=== PATIENT | male | born 1950 | race African-American/Black ===

== ENCOUNTER 2019-07-21 16:03 | Emergency (ER) | payer OTHER ==
[~2019-07-21] VITALS: Ht 170.2 cm; Wt 79.1 kg
[2019-07-21 16:06] VITALS: Ht 170.2 cm; Wt 79.1 kg
[2019-07-21] MEDS ORDERED: LISINOPRIL2.5 MG (16:07)
[2019-07-21] MEDS ORDERED: MEDROL DOSE PACK4 MG PO (16:34)
[2019-07-21] MEDS ORDERED: NORVASC5 MG PO (17:13)
[2019-07-21 17:30] VITALS: BP 160/90
[2019-07-21] MEDS ORDERED: ZOCOR20 MG (22:50)
== END 2019-07-21 17:30 | disposition home or self-care (01) ==
LOC: D.ER 16:03
DX: T78.3XXA Angioneurotic edema, initial encounter (principal)

== ENCOUNTER 2019-07-21 19:09 | Inpatient (IN) | payer MEDICARE ==
[~2019-07-21] VITALS: Ht 170.2 cm; Wt 76.2 kg
[~2019-07-21 19:09] MED LIST: LISINOPRIL2.5 MG; MEDROL DOSE PACK4 MG PO; NORVASC5 MG PO
[2019-07-21 20:00] VITALS: BP 156/91
--- NOTE | 2019-07-21 20:13 | NUR ---
PT INFORMED OF ADMIT STATUS, VOICED UNDERSTANDING, AT BEDSIDE, BED IN LOWEST POSITION, CALL LIGHT IN REACH, HOB ELEVATED TO 75 DEGREES.
[2019-07-21 20:19] LABS: BASOPHILS 0.1 % (0-2); EOSINOPHILS 0 % (0-7); HEMATOCRIT 36.3 % (42.0-54.0); HEMOGLOBIN 12.5 g/dL (13.5-17.5); IMMATURE GRANULOCYTES 0.2 % (0-5); LYMPHOCYTES 9.7 % (15-50); MCH 30.3 pg (26.0-34.0); MCHC 34.4 g/dL (31.0-37.0); MCV 88.1 fL (80.0-100.0); MEAN PLATELET VOLUME 9.9 fL (7.4-10.4); MONOCYTES 1.4 % (2-11); NEUTROPHILS 88.6 % (40-80); PLATELET COUNT 196 10x3/uL (130-400); RBC 4.12 10x6/uL (4.20-6.10); RDW 15.1 % (11.5-14.5); WBC 10.4 10x3/uL (4.8-10.8)
[2019-07-21 20:33] LABS: ALBUMIN 4.1 g/dL (3.4-5.0); ANION GAP 10.3 mmol/L (8-16); BILIRUBIN - TOTAL 0.35 mg/dL (0.2-1.3); CALCIUM 9.2 mg/dL (8.5-10.1); CARBON DIOXIDE 27.5 mmol/L (21.0-32.0); CREATININE - SERUM 1.2 mg/dL (0.6-1.3); POTASSIUM - SERUM 3.8 mmol/L (3.5-5.1)
[2019-07-21 21:05] VITALS: BP 162/95
--- NOTE | 2019-07-21 21:10 | NUR ---
PT RESTING QUIETLY IN BED, NO S/S OF DISTRESS. RESPIRATIONS EVEN AND UNLABORED. CALL LIGHT IN REACH, BED LOW, AT BEDSIDE.
[2019-07-21 22:00] VITALS: BP 160/99
--- NOTE | 2019-07-21 22:05 | NUR ---
ATTEMPTED TO CALL REPORT AT THIS TIME, NURSE UNAVAILABLE, WILL CALL BACK.
--- NOTE | 2019-07-21 22:40 | NUR ---
PT ARRIVED ON UNIT VIA WHEELCHAIR. AOX4, TONGUE SWOLLEN, SPEECH SLURRED/GARBLED. FOLLOWS ALL COMMANDS. SPO2 98 ON ROOM AIR, LUNG SOUNDS CLEAR. S1S2 HEARD, PERIPHERAL PULSES PRESENT. URINAL AT BEDSIDE. VSS, DENIES PAIN AT THIS TIME. FAMILY AT BEDSIDE, UPDATE PROVIDED AND QUESTIONS ANSWERED. PT DENIES NEEDS AT THIS TIME. CALL LIGHT AND BEDSIDE TABLE WITHIN PT REACH. CPOC.
[2019-07-21] MEDS ORDERED: ZOCOR20 MG (22:50)
[2019-07-21 22:51] VITALS: BP 160/99; BMI 26.3
[2019-07-21 23:00] VITALS: BP 144/85
--- NOTE | 2019-07-21 23:30 | NUR ---
MACARIO RICH APN, AT BEDSIDE. UPDATE PROVIDED.
[2019-07-22] VITALS (12 sets, daily range): BP systolic 142–162; BP diastolic 73–97; Ht 170.2 cm; Wt 76.2 kg
--- NOTE | 2019-07-22 01:25 | NUR ---
NO CHANGES AT THIS TIME. PT RESTING QUIETLY WITH VSS. NO C/O PAIN. UNLABROED RESPIRATIONS, NO STRIDOR, SPO2 96 ON ROOM AIR. REPOSITIONED SELF INDEPENDENTLY. CALL LIGHT WITHIN PT REACH. CPOC.
--- NOTE | 2019-07-22 03:30 | NUR ---
REASSESSMENT COMPLETE, NO NEW CHANGES AT THIS TIME. PT RESTING COMFORTBALY WITH NO C/O PAIN AT THIS TIME. VSS, UNLABORED RESPIRATIONS, NO STRIDOR NOTED, SPO2 97. PT DENIES NEEDS AT THIS TIME. CALL LIGHT AND BEDSIDE TABLE WITHIN PT REACH. CPOC.
[2019-07-22 05:21] LABS: BASOPHILS 0 % (0-2); EOSINOPHILS 0 % (0-7); HEMATOCRIT 35.3 % (42.0-54.0); HEMOGLOBIN 12.3 g/dL (13.5-17.5); IMMATURE GRANULOCYTES 0.3 % (0-5); LYMPHOCYTES 13.5 % (15-50); MCH 30.4 pg (26.0-34.0); MCHC 34.8 g/dL (31.0-37.0); MCV 87.2 fL (80.0-100.0); MEAN PLATELET VOLUME 9.5 fL (7.4-10.4); MONOCYTES 1.7 % (2-11); NEUTROPHILS 84.5 % (40-80); PLATELET COUNT 213 10x3/uL (130-400); RBC 4.05 10x6/uL (4.20-6.10); RDW 15.1 % (11.5-14.5); WBC 7.9 10x3/uL (4.8-10.8)
--- NOTE | 2019-07-22 05:36 | NUR ---
PT RESTING QUIETLY WITH VSS, NO S/S OF PAIN OR ACUTE DISTRESS. RESPIRATIONS UNLABORED, NO STRIDOR PRESENT, SPO2 97. CALL LIGHT WITHIN PT REACH. CPOC.
[2019-07-22 05:44] LABS: ANION GAP 14.4 mmol/L (8-16); CALCIUM 8.9 mg/dL (8.5-10.1); CARBON DIOXIDE 26.8 mmol/L (21.0-32.0); CREATININE - SERUM 1.4 mg/dL (0.6-1.3); MAGNESIUM - SERUM 2.2 mg/dL (1.8-2.4); PHOSPHOROUS 4.3 mg/dL (2.5-4.9); POTASSIUM - SERUM 4.2 mmol/L (3.5-5.1)
--- NOTE | 2019-07-22 07:00 | NUR ---
SHIFT ASSESSMENT COMPLETED. REPORT RECIEVED FROM RAFAEL LOYA. NPO. NO STRIDOR. NO DISTRESS NOTED. NO NEEDS AT THIS TIME. CALL LIGHT WITHIN REACH. WILL CONTINUE TO MONITOR.
--- NOTE | 2019-07-22 09:00 | NUR ---
patient resting. CLEAR SPEECH. NO STRIDOR. VSS. CALL LIGHT WITHIN REACH. PATIENT ON PHONE WITH FAMILY. PASSCODE SET UP.
--- NOTE | 2019-07-22 11:20 | NUR ---
patient resting. no stridor. decreased swelling. vss. clear speech.
--- NOTE | 2019-07-22 17:06 | MORECARE ---
CASE MANAGEMENT DISCHARGE SUMMARY PATIENT: CRISTINO LOVELACE UNIT: [id number] ADM DATE: 07/21/19 AGE: 69 : 51 SEX: M ROOM/BED: D.2307 AUTHOR: MARJORIE,DOC PHYSICIAN: REFERRING PHYSICIAN: NALLELY JENKINS MD DATE OF SERVICE: 07/22/19 Discharge Plan Patient Name: CRISTINO LOVELACE Facility: [facility]:[place] : 1950 Planned Disposition: Home Anticipated Discharge Date: Discharge Date: 07/22/2019 Expected LOS: Initial Reviewer: [email or web address] Initial Review Date: 07/21/2019 Generated: 07/22/19 6:06 pm Comments DCP- Discharge Planning Updated by [email or web address]: Agneles Lux on 07/22/19 4:[address] Patient Name: CRISTINO LOVELACE Admission Status: ER Accout number: [id number] Admission Date: 07-21-2019 : 1950 Admission Diagnosis: Attending: NALLELY JENKINS Current LOS: 1 Anticipated DC Date: Planned Disposition: Home Primary Insurance: MEDICARE PART A ONLY Discharge Planning Comments: CM met with patient at bedside after explaining CM role and obtaining verbal consent. Patient lives at home with his Alicia where he is independent with his care and plans to return there upon discharge. Patient feels this would be a safe discharge. CM discussed availability / needs of home health and medical equipment. Patient denies any discharge needs at this time. Patient states he will have his family drive him home upon discharge. CM will continue to follow and assist as needed with discharge planning / needs. Reimbursement Coordinator: Angeles Lux DCPIA - Discharge Planning Initial Assessment Updated by [email or web address]: Angeles Lux on 07/22/19 5:03 pm * Is the patient Alert and Oriented? Yes * How many steps to enter\exit or inside your home? * [facility] * Preadmission Environment Home with Family * ADLs Independent * Equipment None * Other Equipment B/P MONITOR * List name and contact numbers for known caregivers / representatives who currently or will assist patient after discharge: ALICIA LOVELACE - - [phone] * Verbal permission to speak to the caregivers and representatives has been obtained from the patient. Yes * Community resources currently utilized None * Additional services required to return to the preadmission environment? No * Can the patient safely return to the preadmission environment? Yes * Has this patient been hospitalized within the prior 30 days at any hospital? No Patient Name: CRISTINO LOVELACE Page [id number] at 1706 All edits/amendments must be made on the electronic document DICTATION DATE: 07/22/191705 FINANCIAL SALES ADVISOR: JORGE 07/22/191705 RPT#: [id number] DC DATE:07/22/19 STATUS: DIS IN [place] [id number] [place] [address] END OF REPORT
--- NOTE | 2019-07-22 17:27 | MORECARE ---
CASE MANAGEMENT DISCHARGE SUMMARY PATIENT: CRISTINO LOVELACE UNIT: [id number] ADM DATE: 07/21/19 AGE: 69 : 51 SEX: M ROOM/BED: D.2307 AUTHOR: MARJORIE,DOC PHYSICIAN: REFERRING PHYSICIAN: NALLELY JENKINS MD DATE OF SERVICE: 07/22/19 Discharge Plan Patient Name: CRISTINO LOVELACE Facility: [facility]:[place] : 1950 Planned Disposition: Home Anticipated Discharge Date: Discharge Date: 07/22/2019 Expected LOS: Initial Reviewer: [email or web address] Initial Review Date: 07/21/2019 Generated: 07/22/19 6:26 pm Comments DCP- Discharge Planning Updated by [email or web address]: Angeles Lux on 07/22/19 4:[address] Patient Name: CRISTINO LOVELACE Admission Status: ER Accout number: [id number] Admission Date: 07-21-2019 : 1950 Admission Diagnosis: Attending: NALLELY JENKINS Current LOS: 1 Anticipated DC Date: Planned Disposition: Home Primary Insurance: MEDICARE PART A ONLY Discharge Planning Comments: CM met with patient at bedside after explaining CM role and obtaining verbal consent. Patient lives at home with his Alicia where he is independent with his care and plans to return there upon discharge. Patient feels this would be a safe discharge. CM discussed availability / needs of home health and medical equipment. Patient denies any discharge needs at this time. Patient states he will have his family drive him home upon discharge. CM will continue to follow and assist as needed with discharge planning / needs. Fisheries Diver: Angeles Lux DCPIA - Discharge Planning Initial Assessment Updated by [email or web address]: Angeles Lux on 07/22/19 5:03 pm * Is the patient Alert and Oriented? Yes * How many steps to enter\exit or inside your home? * [facility]CP [facility] * Preadmission Environment Home with Family * ADLs Independent * Equipment None * Other Equipment B/P MONITOR * List name and contact numbers for known caregivers / representatives who currently or will assist patient after discharge: ALICIA LOVELACE - - [phone] * Verbal permission to speak to the caregivers and representatives has been obtained from the patient. Yes * Community resources currently utilized None * Additional services required to return to the preadmission environment? No * Can the patient safely return to the preadmission environment? Yes * Has this patient been hospitalized within the prior 30 days at any hospital? No Last DP export: 07/22/19 4:06 p Patient Name: CRISTINO LOVELACE Page [id number] at 1727 All edits/amendments must be made on the electronic document DICTATION DATE: 07/22/191725 CROSS TIE CUTTER: JORGE 07/22/191725 RPT#: [id number] DC DATE:07/22/19 STATUS: DIS IN [facility] [address] [place] [address] END OF REPORT
== END 2019-07-22 14:16 | disposition home or self-care (01) | DRG 916 ==
LOC: D.ER 19:09 → D.ICU 20:42
PROVIDERS: Family Medicine; ADMIT Internal Medicine Nephrology; ATTEND Internal Medicine Nephrology
DX: T78.3XXA Angioneurotic edema, initial encounter (principal); F17.203 Nicotine dependence unspecified, with withdrawal; E78.5 Hyperlipidemia, unspecified; I10 Essential (primary) hypertension